=== PATIENT | male | born 1960 | race Caucasian/White ===

== ENCOUNTER 2019-10-22 07:45 | Inpatient (IN) | payer BC ==
[~2019-10-22] VITALS: Ht 170.2 cm; Wt 62.3 kg
--- NOTE | 2019-10-22 08:30 | NUR ---
ERP IS AT THE BEDSIDE FOR CONSULT AND ASSESSMENT
[2019-10-22] MEDS ORDERED: ONDANSETRON 2MG/ML, 2ML ONE (08:38)
[2019-10-22] MEDS ORDERED: ONDANSETRON 2MG/ML, 2ML IVPush ONE (09:00)
[2019-10-22 09:08] LABS: ALBUMIN 3.8 g/dL (3.4-5.0); ANION GAP 8 mmol/L (5-15); CALCIUM 9.3 mg/dL (8.5-10.1); CHLORIDE 100 mmol/L (98-107); CREATININE 1.17 mg/dL (0.7-1.3)
--- NOTE | 2019-10-22 09:14 | NUR ---
INTERVENTIONAL RADIOLOGY IS AT THE BEDSIDE FOR CONSULT.
[2019-10-22] MEDS ORDERED: POTASSIUM CHLORIDE 40 MEQ in SODIUM CHLORIDE 0.9% 500 ML IV ONE ×2 (09:30→19:30)
--- NOTE | 2019-10-22 10:03 | NUR ---
NASREEN (RN) IS ASSSUMING CARE OF THIS PT AT THIS TIME. SBAR WAS EXCHANGED AT THE BEDSIDE.
--- NOTE | 2019-10-22 10:16 | NUR ---
ASSUMED CARE OF PT AT THIS TIME, VSS, NO NEEDS AT THIS TIME.
--- NOTE | 2019-10-22 10:33 | NUR ---
PT PLACED ON HAT BLOCKER
--- NOTE | 2019-10-22 11:46 | NUR ---
SPOKE WITH IR RN REQUESTING NEW BMP, UPDATED ERMD, BMP ORDERED TO RECHECK K+
[2019-10-22 12:32] LABS: ALBUMIN 3.6 g/dL (3.4-5.0); ANION GAP 8 mmol/L (5-15); CALCIUM 9.4 mg/dL (8.5-10.1); CHLORIDE 106 mmol/L (98-107); CREATININE 0.98 mg/dL (0.7-1.3)
--- NOTE | 2019-10-22 12:39 | NUR ---
REPEAT BMP POSTED->CALLED IR=PLAN TO GO TO IR AFTER CURRENT PATIENT (ETA 130PM)
--- NOTE | 2019-10-22 12:49 | NUR ---
TASK RN: WITH REASSESSMENT PATIENT APPEARS WELL. DENIES NAUSEA/PAIN VSS POTASSIUM INFUSING W/OUT DIFFICULTY UPDATED ON ESTIMATED POC
--- NOTE | 2019-10-22 13:01 | NUR ---
IR CALLED TO UPDATE ON PTS BMP RESULTS, THEY ARE TO TAKE PT AFTER CURRENT CASE
[2019-10-22] MEDS ORDERED: FENTANYL PF 100 MCG/2ML ONE ×2 (14:07→14:30)
[2019-10-22] MEDS ORDERED: MIDAZOLAM 1 MG/ML, 5ML ONE ×2 (14:07→14:30)
[2019-10-22] MEDS ORDERED: FLUMAZENIL 0.1 MG/1 ML, 5ML ONE (14:08)
[2019-10-22] MEDS ORDERED: NALOXONE 1 MG/ML, 2ML ONE (14:08)
--- NOTE | 2019-10-22 14:13 | NUR ---
PT TO IR AT THIS TIME
--- NOTE | 2019-10-22 14:16 | NUR ---
CHUCKIE ALMANZA [phone]
[2019-10-22] MEDS ORDERED: LIDOCAINE 1%, 10ML ONE (14:29)
--- NOTE | 2019-10-22 16:03 | NUR ---
PT BACK FROM [facility] IN TO UPDATE PT ON POC
[2019-10-22] MEDS ORDERED: PROPOFOL 10 MG/ML, 20ML ONE ×2 (16:13→17:09)
[2019-10-22] MEDS ORDERED: PROPOFOL 10 MG/ML, 20ML IVPush ONE (17:00)
--- NOTE | 2019-10-22 18:16 | NUR ---
LATE ENTRY FOR 1654, ASSUMED PT CARE FOR PROCEDURAL SEDATION. DRS. QUINONES AND DR SALVADOR AT BEDSIDE. TIME OUT COMPLETED NOTED ON SEDATION PAPERWORK. PROCEDURE COMPLETED AND PT TOLLERATED WELL. SEE PROCEDURAL SEDATION FORMS.
[2019-10-22] MEDS ORDERED: BISACODYL 10 MG SUPP PR PRN (18:30)
--- NOTE | 2019-10-22 18:34 | NUR ---
ARCHIE STONE, DAUGHTER [phone]
[2019-10-22 19:33] VITALS: BP 155/94
[2019-10-22] MEDS: SODIUM CHLORIDE 0.9% 1,000 ML IV SCH (19:54)
[2019-10-23 00:25] VITALS: BP 160/99
[2019-10-23] MEDS: SODIUM CHLORIDE 0.9% 1,000 ML IV SCH (04:15)
[2019-10-23] MEDS: ONDANSETRON 2MG/ML, 2ML IVPush PRN (04:17)
[2019-10-23 04:21] LABS: BASOPHILS # (AUTO) 0.05 x10^3/uL (0-0.1); BASOPHILS % (AUTO) 1 % (0-1); EOSINOPHILS # (AUTO) 0.47 x10^3/uL (0-0.4); EOSINOPHILS % (AUTO) 13 % (1-7); LYMPHOCYTES # (AUTO) 0.79 x10^3/uL (1-3.4); LYMPHOCYTES % (AUTO) 22 % (22-44); MD NO; MEAN CORPUSCULAR HEMOGLOBIN 31.3 pg (27.5-34.5); MEAN CORPUSCULAR HGB CONC 33.1 g/dL (33.2-36.2); MEAN CORPUSCULAR VOLUME 94.5 fL (81-97); MEAN PLATELET VOLUME 9.1 fL (7.4-10.4); MONOCYTES # (AUTO) 0.16 x10^3/uL (0.2-0.8); MONOCYTES % (AUTO) 4 % (2-9); NEUTROPHILS # (AUTO) 2.13 x10^3/uL (1.8-6.8); NEUTROPHILS % (AUTO) 59 % (42-75); PLATELET COUNT 205 x10^3/uL (130-400); RED BLOOD COUNT 4.11 x10^6/uL (4.38-5.82); RED CELL DISTRIBUTION WIDTH 14.1 % (9.4-14.8)
[2019-10-23 04:32] LABS: ANION GAP 6 mmol/L (5-15); CALCIUM 8.9 mg/dL (8.5-10.1); CHLORIDE 112 mmol/L (98-107); CREATININE 0.85 mg/dL (0.7-1.3)
[2019-10-23 06:58] VITALS: BP 184/103
[2019-10-23] MEDS ORDERED: hydrALAzine 20 MG/ML, 1ML IV PRN (08:00)
[2019-10-23 08:05] VITALS: BP 162/101
[2019-10-23] MEDS: PROMETHAZINE 25 MG/ML, 1ML IM PRN (08:24)
[2019-10-23 09:06] VITALS: BP 142/86
[2019-10-23 12:15] VITALS: BP 186/105
[2019-10-23] MEDS: LABETALOL 5MG/ML, 20ML IVPush PRN (13:20)
[2019-10-23] MEDS ORDERED: OMNIPAQUE 350 MG/ML, 100ML BOTTLE ONE (13:55)
[2019-10-23] MEDS ORDERED: FENTANYL PF 100 MCG/2ML ONE (14:31)
[2019-10-23] MEDS ORDERED: MIDAZOLAM 1 MG/ML, 5ML ONE (14:31)
[2019-10-23] MEDS ORDERED: NALOXONE 1 MG/ML, 2ML ONE (14:32)
[2019-10-23] MEDS ORDERED: FLUMAZENIL 0.1 MG/1 ML, 5ML ONE (14:32)
[2019-10-23] MEDS ORDERED: LIDOCAINE 1%, 10ML ONE (14:50)
[2019-10-23] MEDS ORDERED: DEXTROSE 50%, 50ML SYRINGE IVPush PRN (17:00)
[2019-10-23] MEDS ORDERED: PVN PER PHARMACY IV SCH (17:00)
[2019-10-23] MEDS ORDERED: DEXTROSE 10% 500 ML IV PRN (17:00)
[2019-10-23] MEDS ORDERED: AMINO ACID 10% 750 ML, DEXTROSE 70% 350 ML, FAT EMUL/SMOF TPN 200 ML, STERILE WATER 1,0... IV SCH (17:00)
[2019-10-23] MEDS ORDERED: FILTER, DISP 1.2 MICRON FOR TPN/PVN IV PRN (17:00)
[2019-10-23] MEDS ORDERED: SODIUM CHLORIDE 0.9% 1,000 ML IV SCH ×2 (17:13→17:30)
[2019-10-23 18:29] VITALS: BP 147/91
[2019-10-23] MEDS: INSULIN REGULAR MEDIUM DOSE Q6H X 48HRS SQ-INSULIN SCH (21:18)
[2019-10-23] MEDS ORDERED: TPN PER PHARMACY MC PRN (22:30)
[2019-10-24 00:09] VITALS: BP 132/84
[2019-10-24] MEDS: INSULIN REGULAR MEDIUM DOSE Q6H X 48HRS SQ-INSULIN SCH ×2 (03:00→23:01)
[2019-10-24 04:37] LABS: ALANINE AMINOTRANSFERASE 84 U/L (12-78); ALBUMIN 3.2 g/dL (3.4-5.0); ANION GAP 6 mmol/L (5-15); CALCIUM 9.1 mg/dL (8.5-10.1); CHLORIDE 113 mmol/L (98-107); CREATININE 0.91 mg/dL (0.7-1.3)
[2019-10-24 04:42] LABS: ALKALINE PHOSPHATASE 122 U/L (45-117); BILIRUBIN,TOTAL 0.4 mg/dL (0.2-1.0); TOTAL PROTEIN 6.7 g/dL (6.4-8.2); TRIGLYCERIDES 133 mg/dL (50-200)
[2019-10-24 04:59] LABS: MEAN CORPUSCULAR HEMOGLOBIN 31.4 pg (27.5-34.5); MEAN CORPUSCULAR VOLUME 95.3 fL (81-97); MEAN PLATELET VOLUME 9.6 fL (7.4-10.4); PLATELET COUNT 210 x10^3/uL (130-400); RED BLOOD COUNT 4.14 x10^6/uL (4.38-5.82); RED CELL DISTRIBUTION WIDTH 14.3 % (9.4-14.8)
[2019-10-24 05:49] LABS: BASOPHILS # (AUTO) 0.03 x10^3/uL (0-0.1); BASOPHILS % (AUTO) 1 % (0-1); EOSINOPHILS # (AUTO) 0.22 x10^3/uL (0-0.4); EOSINOPHILS % (AUTO) 8 % (1-7); LYMPHOCYTES # (AUTO) 0.82 x10^3/uL (1-3.4); LYMPHOCYTES % (AUTO) 30 % (22-44); MD SCAN; MONOCYTES # (AUTO) 0.16 x10^3/uL (0.2-0.8); MONOCYTES % (AUTO) 6 % (2-9); NEUTROPHILS # (AUTO) 1.52 x10^3/uL (1.8-6.8); NEUTROPHILS % (AUTO) 55 % (42-75)
[2019-10-24 06:43] VITALS: BP 167/93
[2019-10-24] MEDS ORDERED: TPN PER PHARMACY MC PRN (10:30)
[2019-10-24 12:00] VITALS: BP 132/80
[2019-10-24] MEDS ORDERED: SMOF TPN IV SCH (17:00)
[2019-10-24] MEDS ORDERED: DEXTROSE 50%, 50ML SYRINGE IVPush PRN (17:00)
[2019-10-24] MEDS ORDERED: DEXTROSE 70% IV SCH (17:00)
[2019-10-24] MEDS ORDERED: [UNRECOGNIZED DRUG - OTHER] IV SCH (17:00)
[2019-10-24] MEDS ORDERED: DEXTROSE 10% 500 ML IV PRN (17:00)
[2019-10-24] MEDS ORDERED: AMINO ACID 10% IV SCH (17:00)
[2019-10-24] MEDS ORDERED: FAT EMUL IV SCH (17:00)
[2019-10-24] MEDS: FILTER, DISP 1.2 MICRON FOR TPN/PVN IV PRN (17:37)
[2019-10-24 19:21] VITALS: BP 138/94
[2019-10-25 02:06] VITALS: BP 129/80
[2019-10-25] MEDS: ONDANSETRON 2MG/ML, 2ML IVPush PRN ×3 (03:01→17:56)
[2019-10-25 03:28] LABS: ALANINE AMINOTRANSFERASE 139 U/L (12-78); ALBUMIN 3.2 g/dL (3.4-5.0); ANION GAP 8 mmol/L (5-15); CALCIUM 9.1 mg/dL (8.5-10.1); CHLORIDE 109 mmol/L (98-107); CREATININE 0.86 mg/dL (0.7-1.3)
[2019-10-25 03:30] LABS: ALKALINE PHOSPHATASE 137 U/L (45-117); BILIRUBIN,TOTAL 0.5 mg/dL (0.2-1.0)
[2019-10-25] MEDS: INSULIN REGULAR MEDIUM DOSE Q6H X 48HRS SQ-INSULIN SCH ×4 (05:31→22:57)
[2019-10-25 06:53] VITALS: BP 150/90
[2019-10-25] MEDS ORDERED: POTASSIUM CHLORIDE 40 MEQ in SODIUM CHLORIDE 0.9% 100 ML IV ONE (09:00)
[2019-10-25 12:32] VITALS: BP 112/79
[2019-10-25] MEDS ORDERED: FAT EMUL IV SCH (17:00)
[2019-10-25] MEDS ORDERED: DEXTROSE 70% IV SCH (17:00)
[2019-10-25] MEDS ORDERED: [UNRECOGNIZED DRUG - OTHER] IV SCH (17:00)
[2019-10-25] MEDS ORDERED: SMOF TPN IV SCH (17:00)
[2019-10-25] MEDS ORDERED: AMINO ACID 10% IV SCH (17:00)
[2019-10-25] MEDS: FILTER, DISP 1.2 MICRON FOR TPN/PVN IV PRN (17:40)
[2019-10-25 18:28] VITALS: BP 128/93
[2019-10-26 00:04] VITALS: BP 122/80
[2019-10-26 00:14] LABS: CLOSTRIDIUM DIFFICILE ANTIGEN NEGATIVE; CLOSTRIDIUM DIFFICILE TOXIN NEGATIVE (Negative)
[2019-10-26] MEDS: INSULIN REGULAR MEDIUM DOSE Q6H X 48HRS SQ-INSULIN SCH (05:00)
[2019-10-26 05:37] LABS: MEAN CORPUSCULAR HGB CONC 32.6 g/dL (33.2-36.2); MEAN CORPUSCULAR VOLUME 94.9 fL (81-97); MEAN PLATELET VOLUME 9.3 fL (7.4-10.4); PLATELET COUNT 186 x10^3/uL (130-400); RED BLOOD COUNT 4.44 x10^6/uL (4.38-5.82); RED CELL DISTRIBUTION WIDTH 14.6 % (9.4-14.8)
[2019-10-26 05:39] LABS: CHLORIDE 113 mmol/L (98-107)
[2019-10-26 05:52] LABS: ALANINE AMINOTRANSFERASE 218 U/L (12-78); ALBUMIN 3.2 g/dL (3.4-5.0); ALKALINE PHOSPHATASE 155 U/L (45-117); ANION GAP 5 mmol/L (5-15); BILIRUBIN,TOTAL 0.3 mg/dL (0.2-1.0); CALCIUM 9.4 mg/dL (8.5-10.1); PREALBUMIN 36.5 mg/dL (20.0-40.0); TOTAL PROTEIN 6.9 g/dL (6.4-8.2)
[2019-10-26 06:14] LABS: BASOPHILS # (AUTO) 0.04 x10^3/uL (0-0.1); BASOPHILS % (AUTO) 1 % (0-1); EOSINOPHILS # (AUTO) 0.32 x10^3/uL (0-0.4); EOSINOPHILS % (AUTO) 7 % (1-7); LYMPHOCYTES # (AUTO) 1.04 x10^3/uL (1-3.4); LYMPHOCYTES % (AUTO) 24 % (22-44); MD SCAN; MONOCYTES # (AUTO) 0.32 x10^3/uL (0.2-0.8); MONOCYTES % (AUTO) 7 % (2-9); NEUTROPHILS # (AUTO) 2.64 x10^3/uL (1.8-6.8); NEUTROPHILS % (AUTO) 61 % (42-75)
[2019-10-26 07:26] VITALS: BP 118/87
[2019-10-26] MEDS: morphine SULFATE 10 MG/ML, 1ML IVPush PRN (07:50)
[2019-10-26] MEDS: ONDANSETRON 2MG/ML, 2ML IVPush PRN ×3 (07:50→19:34)
[2019-10-26] MEDS ORDERED: INSULIN REGULAR MEDIUM DOSE QDAY SQ-INSULIN SCH (09:00)
[2019-10-26 13:45] VITALS: BP 120/75
[2019-10-26] MEDS: FILTER, DISP 1.2 MICRON FOR TPN/PVN IV PRN (16:56)
[2019-10-26] MEDS ORDERED: SMOF TPN IV SCH (17:00)
[2019-10-26] MEDS ORDERED: [UNRECOGNIZED DRUG - OTHER] IV SCH (17:00)
[2019-10-26] MEDS ORDERED: AMINO ACID 10% IV SCH (17:00)
[2019-10-26] MEDS ORDERED: DEXTROSE 70% IV SCH (17:00)
[2019-10-26] MEDS ORDERED: FAT EMUL IV SCH (17:00)
[2019-10-26 18:50] VITALS: BP 119/79
[2019-10-27] VITALS (7 sets, daily range): BP systolic 110–159; BP diastolic 60–102
[2019-10-27] MEDS: LABETALOL 5MG/ML, 20ML IVPush PRN (02:46)
[2019-10-27 05:28] LABS: CHLORIDE 106 mmol/L (98-107)
[2019-10-27 05:34] LABS: ANION GAP 7 mmol/L (5-15); CALCIUM 9.7 mg/dL (8.5-10.1)
[2019-10-27] MEDS: INSULIN REGULAR MEDIUM DOSE QDAY SQ-INSULIN SCH (07:00)
[2019-10-27] MEDS: ONDANSETRON 2MG/ML, 2ML IVPush PRN ×2 (08:15→14:19)
[2019-10-27] MEDS: PROMETHAZINE 25 MG/ML, 1ML IM PRN ×3 (10:12→21:09)
[2019-10-27] MEDS: morphine SULFATE 10 MG/ML, 1ML IVPush PRN ×4 (13:39→21:10)
[2019-10-27] MEDS ORDERED: FAT EMUL IV SCH (17:00)
[2019-10-27] MEDS ORDERED: SMOF TPN IV SCH (17:00)
[2019-10-27] MEDS ORDERED: DEXTROSE 70% IV SCH (17:00)
[2019-10-27] MEDS ORDERED: [UNRECOGNIZED DRUG - OTHER] IV SCH (17:00)
[2019-10-27] MEDS ORDERED: AMINO ACID 10% IV SCH (17:00)
[2019-10-27] MEDS: FILTER, DISP 1.2 MICRON FOR TPN/PVN IV PRN (17:23)
[2019-10-27] MEDS ORDERED: ENAL10TA71 PO (17:55)
[2019-10-28] MEDS: ONDANSETRON 2MG/ML, 2ML IVPush PRN ×2 (01:35→12:02)
[2019-10-28] MEDS: morphine SULFATE 10 MG/ML, 1ML IVPush PRN ×4 (01:36→17:10)
[2019-10-28 02:02] VITALS: BP 116/77
[2019-10-28 06:04] LABS: ANION GAP 6 mmol/L (5-15); CALCIUM 9.3 mg/dL (8.5-10.1); CHLORIDE 103 mmol/L (98-107)
[2019-10-28 06:06] LABS: CREATININE 0.98 mg/dL (0.7-1.3)
[2019-10-28 06:33] VITALS: BP 104/71
[2019-10-28] MEDS: INSULIN REGULAR MEDIUM DOSE QDAY SQ-INSULIN SCH (06:46)
[2019-10-28 12:56] VITALS: BP 116/80
[2019-10-28] MEDS ORDERED: SMOF TPN IV SCH (17:00)
[2019-10-28] MEDS ORDERED: DEXTROSE 70% IV SCH (17:00)
[2019-10-28] MEDS ORDERED: [UNRECOGNIZED DRUG - OTHER] IV SCH (17:00)
[2019-10-28] MEDS ORDERED: FAT EMUL IV SCH (17:00)
[2019-10-28] MEDS ORDERED: AMINO ACID 10% IV SCH (17:00)
[2019-10-28] MEDS: FILTER, DISP 1.2 MICRON FOR TPN/PVN IV PRN (17:11)
[2019-10-28 18:34] VITALS: BP 132/87
[2019-10-28 19:41] VITALS: BP 121/67
[2019-10-29] MEDS: morphine SULFATE 10 MG/ML, 1ML IVPush PRN ×3 (00:43→13:17)
[2019-10-29 00:47] VITALS: BP 118/82
[2019-10-29 06:58] LABS: BASOPHILS # (AUTO) 0.01 x10^3/uL (0-0.1); BASOPHILS % (AUTO) 0 % (0-1); EOSINOPHILS # (AUTO) 0.18 x10^3/uL (0-0.4); EOSINOPHILS % (AUTO) 3 % (1-7); LYMPHOCYTES # (AUTO) 0.83 x10^3/uL (1-3.4); LYMPHOCYTES % (AUTO) 15 % (22-44); MD NO; MEAN CORPUSCULAR HEMOGLOBIN 31.8 pg (27.5-34.5); MEAN CORPUSCULAR HGB CONC 33.3 g/dL (33.2-36.2); MEAN CORPUSCULAR VOLUME 95.6 fL (81-97); MEAN PLATELET VOLUME 10.3 fL (7.4-10.4); MONOCYTES # (AUTO) 0.75 x10^3/uL (0.2-0.8); MONOCYTES % (AUTO) 13 % (2-9); NEUTROPHILS # (AUTO) 3.88 x10^3/uL (1.8-6.8); NEUTROPHILS % (AUTO) 69 % (42-75); PLATELET COUNT 156 x10^3/uL (130-400); RED BLOOD COUNT 4.57 x10^6/uL (4.38-5.82)
[2019-10-29 07:00] LABS: ANION GAP 8 mmol/L (5-15); CALCIUM 9.2 mg/dL (8.5-10.1); CHLORIDE 99 mmol/L (98-107); CREATININE 0.87 mg/dL (0.7-1.3)
[2019-10-29] MEDS: INSULIN REGULAR MEDIUM DOSE QDAY SQ-INSULIN SCH (07:00)
[2019-10-29] MEDS: ONDANSETRON 2MG/ML, 2ML IVPush PRN ×2 (08:29→16:18)
[2019-10-29 08:47] VITALS: BP 112/72
[2019-10-29 13:35] VITALS: BP 115/77
[2019-10-29] MEDS ORDERED: AMINO ACID 10% IV SCH (17:00)
[2019-10-29] MEDS ORDERED: FAT EMUL IV SCH (17:00)
[2019-10-29] MEDS ORDERED: DEXTROSE 70% IV SCH (17:00)
[2019-10-29] MEDS ORDERED: [UNRECOGNIZED DRUG - OTHER] IV SCH (17:00)
[2019-10-29] MEDS ORDERED: SMOF TPN IV SCH (17:00)
[2019-10-29] MEDS: FILTER, DISP 1.2 MICRON FOR TPN/PVN IV PRN (17:33)
[2019-10-29] MEDS: HEPARIN 5,000 UNITS/ML, 1ML SQ SCH (17:33)
[2019-10-29 19:17] VITALS: BP 117/80
[2019-10-30 00:45] VITALS: BP 120/81
[2019-10-30] MEDS: HEPARIN 5,000 UNITS/ML, 1ML SQ SCH ×3 (02:03→16:29)
[2019-10-30] MEDS: morphine SULFATE 10 MG/ML, 1ML IVPush PRN ×4 (02:07→15:39)
[2019-10-30] MEDS: ONDANSETRON 2MG/ML, 2ML IVPush PRN ×2 (05:05→15:39)
[2019-10-30 05:24] LABS: CHLORIDE 99 mmol/L (98-107)
[2019-10-30 05:30] LABS: ANION GAP 8 mmol/L (5-15); CALCIUM 9.2 mg/dL (8.5-10.1); CREATININE 0.92 mg/dL (0.7-1.3)
[2019-10-30 07:09] VITALS: BP 126/81
[2019-10-30] MEDS: INSULIN REGULAR MEDIUM DOSE QDAY SQ-INSULIN SCH (07:09)
[2019-10-30] MEDS: PROMETHAZINE 25 MG/ML, 1ML IM PRN ×2 (09:40→19:18)
[2019-10-30 12:12] VITALS: BP 133/83
[2019-10-30] MEDS: FILTER, DISP 1.2 MICRON FOR TPN/PVN IV PRN (16:30)
[2019-10-30] MEDS ORDERED: SMOF TPN IV SCH (17:00)
[2019-10-30] MEDS ORDERED: AMINO ACID 10% IV SCH (17:00)
[2019-10-30] MEDS ORDERED: [UNRECOGNIZED DRUG - OTHER] IV SCH (17:00)
[2019-10-30] MEDS ORDERED: FAT EMUL IV SCH (17:00)
[2019-10-30] MEDS ORDERED: DEXTROSE 70% IV SCH (17:00)
[2019-10-30 19:04] VITALS: BP 108/72
== END 2019-10-30 20:07 | DRG 374 ==
LOC: ED 08:20 → EDIP 17:45 → 4NW 19:19
PROVIDERS: ADMIT Family Medicine; ATTEND Internal Medicine
PROC: 0DH63UZ Insertion of Feeding Device into Stomach, Percutaneous Approach (ICD-10-PCS; principal; 2019-10-22 17:00)
DX: C17.0 Malignant neoplasm of duodenum (principal); K83.1 Obstruction of bile duct; C25.0 Malignant neoplasm of head of pancreas; E46 Unspecified protein-calorie malnutrition; K31.1 Adult hypertrophic pyloric stenosis; K31.5 Obstruction of duodenum; E87.6 Hypokalemia; F43.21 Adjustment disorder with depressed mood; K52.9 Noninfective gastroenteritis and colitis, unspecified; Z80.8 Family history of malignant neoplasm of other organs or systems; Z85.068 Personal history of other malignant neoplasm of small intestine; Z85.07 Personal history of malignant neoplasm of pancreas; Z87.891 Personal history of nicotine dependence; Z92.21 Personal history of antineoplastic chemotherapy; Z93.4 Other artificial openings of gastrointestinal tract status; Z98.84 Bariatric surgery status; Z68.21 Body mass index [BMI] 21.0-21.9, adult; Z79.899 Other long term (current) drug therapy
CPT/HCPCS: 36415; 75984; 76000; 96361; 96374; 99285; J3475; J3490; 49452; 71045; 74170; 80048; 80053; 82040; 82962; 83735; 84100; 84134; 84478; 85025; 87324; 93005; 99156; 99157; G0378; J0610; J1644; J2250; J2405; J2550; J2704; J3010; J3480; Q9967; C1729; C1751; C1769; C1894; J1720; J2270; J2310; J3420; J7030; J7040